=== PATIENT | female | born 1995 | race African-American/Black ===

== ENCOUNTER 2018-06-02 18:32 | Emergency (ER) | payer OTHER ==
[2018-06-02 18:42] VITALS: BMI 31.8
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
[2018-06-02 21:22] VITALS: BP 137/68; PULSE 86; TEMP 98.5
== END 2018-06-02 21:33 | disposition short-term general hospital (02) ==
LOC: JER 18:32 → JERFT 18:32 → JER 21:33
DX: T76.21XA Adult sexual abuse, suspected, initial encounter (principal); Y07.9 Unspecified perpetrator of maltreatment and neglect; Z86.59 Personal history of other mental and behavioral disorders
CPT/HCPCS: 99282-25

== ENCOUNTER 2018-06-26 15:18 | Emergency (ER) | payer OTHER ==
[2018-06-26 15:30] VITALS: BMI 31.1
--- NOTE | 2018-06-26 15:30 | PDOC ---
Rapid Medical Evaluation Chief Complaint: Weakness Time Seen by Provider: 06/26/18 15:26 Medical Evaluation: Allergies Allergy/AdvReac Type Severity Reaction Status Date / Time divalproex sodium Allergy Verified 06/26/18 15:26 [From [facility]] 06/26/18 15:27 c/o dizziness weakness and bodyaches x3 weeks worsening, + cough and sneezing Pe: patient alert ox3. A: weakness P: Ua urine patient to the ER for further management of care. Discharge Disposition - Diagnosis Malaise - Referrals - Patient Instructions - Post Discharge Activity
[2018-06-26] MEDS ORDERED: IBUPROFEN 600 MG TABLET (FP) PO ONE ×2 (16:34→16:40)
[2018-06-26 16:45] LABS: EPI CELLS 9.1 /HPF (0-5/HPF); PH,URINE 6.5 (5.0-8.0); URINE APPEARANCE CLOUDY; URINE BACTERIA 212.4 /hpf (NEGATIVE); URINE BILIRUBIN NEGATIVE (NEGATIVE); URINE CASTS 5 /lpf (0-8); URINE COLOR YELLOW; URINE GLUCOSE (UA) NEGATIVE (NEGATIVE); URINE KETONE TRACE (NEGATIVE); URINE LEUK ESTERASE NEGATIVE (NEGATIVE); URINE NITRITE NEGATIVE (NEGATIVE); URINE PROTEIN NEGATIVE (NEGATIVE); URINE RBC 1 /hpf (0-4); URINE WBC 1 /hpf (0-5)
--- NOTE | 2018-06-26 16:53 | PDOC ---
History of Present Illness - General Chief Complaint: Weakness Stated Complaint: DIZZINESS Time Seen by Provider: 06/26/18 15:26 History Source: Patient Exam Limitations: No Limitations Past History - Travel Traveled outside of the country in the last 30 days: No Close contact w/someone who was outside of country & ill: No - Past Medical History Allergies/Adverse Reactions: Allergies Allergy/AdvReac Type Severity Reaction Status Date / Time divalproex sodium Allergy Verified 06/26/18 15:26 [From [facility]] Home Medications: Ambulatory Orders Cetirizine HCl [Zyrtec -] 10 mg PO DAILY #30 tablet 06/26/18 Fluticasone Prop 0.05% Nasal [Flonase -] 1 - 2 spray NS DAILY #1 spray.pump Asthma: No COPD: No GI Disorders: No Psychiatric Problems: Yes (personality d/o anxiety) - Surgical History Orthopedic Surgery: Yes (Spinal instrumentation for scoliosis) - Immunization History Immunization Up to Date: Yes - Suicide/Smoking/Psychosocial Hx Smoking Status: No Smoking History: Never smoked Have you smoked in the past 12 months: No Number of Cigarettes Smoked Daily: 0 Hx Alcohol Use: No Drug/Substance Use Hx: No Substance Use Type: Prescribed Hx Substance Use Treatment: No Review of Systems - Review of Systems Able to Perform ROS?: Yes Comments:: 06/26/18 17:21 CONSTITUTIONAL: Absent: fever, chills, diaphoresis, generalized weakness, malaise, loss of appetite HEENT: Present: rhinorrhea, sneezing Absent: rhinorrhea, nasal congestion, throat pain , throat swelling, difficulty swallowing, mouth swelling, ear pain, eye pain, visual Changes CARDIOVASCULAR: Absent: chest pain, loss of consciousness, palpitations, irregular heart rate, peripheral edema RESPIRATORY: Present: dry cough Absent: shortness of breath, dyspnea with exertion, orthopnea , wheezing, stridor, hemoptysis GASTROINTESTINAL: Absent: abdominal pain, abdominal distension, nausea, vomiting, diarrhea, constipation, melena, hematochezia GENITOURINARY: Absent: dysuria, frequency, urgency, hesitancy, hematuria, flank pain, genital pain MUSCULOSKELETAL: Absent: myalgia, arthralgia, joint swelling SKIN: Absent: rash, itching, pallor HEMATOLOGIC/IMMUNOLOGIC: Absent: easy bleeding, easy bruising, lymphadenopathy, frequent infections ENDOCRINE: Absent: unexplained weight gain, unexplained weight loss, heat intolerance, cold intolerance NEUROLOGIC: Absent: headache, focal weakness or paresthesias, dizziness, unsteady gait, seizure, mental status changes, bladder or bowel incontinence PSYCHIATRIC: Absent: anxiety, depression, suicidal or homicidal ideation, hallucinations. Is the patient limited [place] proficient: No *Physical Exam - Vital Signs Last Vital Signs Temp Pulse Resp BP Pulse Ox 98.6 F 88 18 115/62 97 06/26/18 15:27 06/26/18 15:27 06/26/18 15:27 06/26/18 15:27 06/26/18 16:29 - Physical Exam Comments: 06/26/18 17:20 GENERAL: Well developed, well nourished. Awake and alert. No acute distress. HEENT: Normocephalic, atraumatic. PERRLA, EOMI. No conjunctival pallor. Sclera are non- icteric. Moist mucous membranes. Oropharynx is clear. Injected nasal turbinates NECK: Supple. Full ROM. No JVD. Carotid pulses 2+ and symmetric, without bruits. No thyromegaly. No lymphadenopathy. CARDIOVASCULAR: Regular rate and rhythm. No murmurs, rubs, or gallops. Distal pulses are 2+ and symmetric. PULMONARY: No evidence of respiratory distress. Lungs clear to auscultation bilaterally. No wheezing, rales or rhonchi. ABDOMINAL: Soft. Non-tender. Non-distended. No rebound or guarding. No organomegaly. Normoactive bowel sounds. MUSCULOSKELETAL Normal range of motion at all joints. No bony deformities or tenderness. No CVA tenderness. EXTREMITIES: No cyanosis. No clubbing. No edema. No calf tenderness. SKIN: Warm and dry. Normal capillary refill. No rashes. No jaundice. NEUROLOGICAL: Alert, awake, appropriate. Cranial nerves 2-12 intact. No deficits to light touch and temperature in face, upper extremities and lower extremities. No motor deficits in the in face, upper extremities and lower extremities. Normoreflexic in the upper and lower extremities. Normal speech. Toes are down- going bilaterally. Gait is normal without ataxia. PSYCHIATRIC: Cooperative. Good eye contact. Appropriate mood and affect. ED Treatment Course - RADIOLOGY Radiology Studies Ordered: Category Date Time Status CHEST PA & LAT [RAD] Stat Radiology 06/26/18 16:14 Ordered Medical Decision Making - Medical Decision Making 06/26/18 18:29 The patient is a 22-year-old female with past medical history of bipolar disorder, schizophrenia who presents to the ER today for 3 weeks of rhinorrhea, sneezing, dry cough. Denies fevers, chills, sore throat, earache, nausea, vomiting, diarrhea. Patient admits to an associated frontal headache headache. She has not taken any medication for her symptoms. A/P: Seasonal ALLERGIES/URI On exam patient with injected nasal turbinates. No cough noted on exam. Lungs with fair air sounds to the bases. Otherwise clear Chest x-ray obtained and is negative for pneumonia. Motrin given for the headache with relief of symptoms. I suspect that the patient has seasonal ALLERGIES. Flonase and Zyrtec prescribed. Patient to follow-up with her primary care doctor. Discharge home I discussed the physical exam findings, ancillary test results and final diagnoses with the patient. I answered all of the patient's questions. The patient was satisfied with the care received and felt comfortable with the discharge plan and treatment plan. The Patient agrees to follow up with the primary care physician/specialist within 24-72 hours. Return precautions were given. *DC/Admit/Observation/Transfer Diagnosis at time of Disposition: Seasonal allergies - Discharge Dispostion Disposition: HOME - Prescriptions Prescriptions: Cetirizine HCl [Zyrtec -] 10 mg PO DAILY #30 tablet Fluticasone Prop 0.05% Nasal [Flonase -] 1 - 2 spray NS DAILY #1 spray.pump - Referrals Referrals: Lor Garrett [Primary Care Provider] - - Patient Instructions Printed Discharge Instructions: Allergic Rhinitis Additional Instructions: You were evaluated for your cough, sneezing and head ache today Your chest x-ray and exam were normal I suspect you have seasonal allergies Please take the zyrtec daily Use the flonase spray twice a day Follow up with your primary care doctor this week Return to the ED for fever, chills, or if you have any new or worsening symptoms. - Post Discharge Activity
[2018-06-26 16:57] LABS: HCG,QUALITATIVE URINE Negative
[2018-06-26 17:43] VITALS: BP 120/73; PULSE 86; TEMP 98.1
== END 2018-06-26 18:33 | disposition home or self-care (01) ==
LOC: JER 15:18
DX: J30.2 Other seasonal allergic rhinitis (principal)
CPT/HCPCS: 71046-TC-FY; 81003; 84703; 99284-25